=== PATIENT | female | born 1965 | race Caucasian/White ===

== ENCOUNTER 2016-09-06 06:13 | Emergency (ER) | payer MEDICARE ==
[~2016-09-06 06:13] MED LIST: ACETAMINOPHEN325 MG PO; ADULT LOW DOSE81 MG PO; BRILINTA90 MG PO; CARVEDILOL3.125 MG PO; COMBIVENT0.074 GM/I INH; FEOSOL325 MG PO; LANTUS100 UNIT/1 SQ; LEVAQUIN500 MG PO; LEVOTHYROXINE125 MCG PO; NITROSTAT 0.40.4 MG SL; NOVOLOG; TYLENOL 325MG325 MG PO; TYLENOL W/CODEIN1 E1 PO
[2016-09-06 07:17] LABS: HEMOGLOBIN 12.4 gm/dl (12.3-15.3); RED BLOOD COUNT 4.17 M/UL (4.00-5.10); WHITE BLOOD COUNT 7.6 K/UL (4.5-11.0)
== END 2016-09-06 11:20 | disposition left against medical advice (07) ==
LOC: ER1 06:13
PROVIDERS: Physician Assistant
DX: R55 Syncope and collapse (principal); E11.22 Type 2 diabetes mellitus with diabetic chronic kidney disease; N18.9 Chronic kidney disease, unspecified; E11.65 Type 2 diabetes mellitus with hyperglycemia; E87.1 Hypo-osmolality and hyponatremia; F17.200 Nicotine dependence, unspecified, uncomplicated; Z86.79 Personal history of other diseases of the circulatory system; Z95.810 Presence of automatic (implantable) cardiac defibrillator; Z95.1 Presence of aortocoronary bypass graft; Z79.82 Long term (current) use of aspirin; Z79.4 Long term (current) use of insulin
CPT/HCPCS: 36415; 70450; 71010; 80053; 82550; 82553; 83874; 84484; 85025; 93005; 99284